=== PATIENT | female | born 1995 | race American Indian/Alaskan Native ===

== ENCOUNTER 2019-10-23 07:30 | Inpatient (IN) | payer OTHER ==
--- NOTE | 2019-11-03 17:01 | History and Physical Report ---
History of Present Illness Date of examination: 11/02/19 Date of admission: 11/02/2017 Chief complaint: here for c/s History of present illness: Pt presents for repeat c/s pre op. She does not desire btl at this time and is considering the IUD PP. All risk , benefits and alternatives were d/w pt and questions were addressed and answered. Consents were signed and given to pt to bring at time of surgery to the hospital. EDC Confirmation: 11/16/2019 Gestational Age: 19 2/7 weeks Past History : 2 Term Births: 1 Premature Births: 0 Living Children: 1 Para: 1 Mult. Births: 0 Prev : 1 Prev. attempt? 0 Aborta: 0 Elect. Ab: 0 Spont. Ab: 0 Ectopics: 0 # 1 Delivery date: 2017 Weeks Gestation: 40 labor: no Delivery type: Anesthesia type: epidural Delivery location: [facility] Infant Sex: Male weight: 9-3 Past Medical History: Negative Past Medical History Past Surgical History: C/S x 1 Family History Summary: MGF - Has Family History of Lung Cancer - Entered On: 06/24/2019 MGM - Has Family History of Hypertension - Entered On: 06/24/2019 Social History: Patient is single Smoking History: Patient has never smoked. 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 Infection History Hx of STD: none HIV Risk Eval: low risk Hepatitis B Risk Eval: low risk Personal hx. of genital herpes: no Partner hx. of genital herpes: no Rash, Viral, or Febrile illness since last LMP? no Varicella/Chicken Pox Status: Immunized TB Risk: no Active Medications (reviewed today): PLUS 27-1 MG ORAL TABLET ( VIT-FE FUMARATE-FA) 1 po Current Allergies (reviewed today): No known allergies Past History Past Medical History: other (see hpi) Past Surgical History: other (see hpi) BULK LOADER History: other (see hpi) Family/Genetic History: other (see hpi) - Obstetrical History Expected Date of Delivery: 11/16/19 Actual Gestation: 38 Week(s) 1 Day(s) : 2 Para: 1 Number of Living Children: 1 Review of Systems All systems: negative - Physical Exam Lungs: Positive: Normal air movement Abdomen: Positive: normal appearance, soft. Negative: distention, tenderness Genitourinary (Female): Positive: other (deferred) Extremities: Positive: normal. Negative: tenderness, edema - Obstetrical FHR: auscultation normal Results All other labs normal. Assessment and Plan - Patient Problems (1) Maternal care for low transverse scar from previous delivery Status: Acute Plan to address problem: -admit and prepare for repeat c/s -consents signed and to be placed on the chart
[2019-11-10] MEDS ORDERED: FAMOTIDINE 20 MG/2 ML INJ IV SCH (05:00)
[2019-11-10] MEDS ORDERED: OXYTOCIN 20 UNIT/1000ML DRIP 20 UNITS/1,000 ML BAG IV SCH ×2 (05:00→16:30)
[2019-11-10] MEDS ORDERED: METOCLOPRAMIDE 10 MG/2 ML INJ IV SCH (05:00)
[2019-11-10] MEDS ORDERED: ceFAZolin/Water 2 GM/20 ML 2 GM/20 ML SYRINGE IV NR (05:00)
[2019-11-10] MEDS ORDERED: BICITRA ORAL LIQD 30ML PO SCH (05:00)
[2019-11-10] MEDS ORDERED: LACTATED RINGERS 1,000 ML IV SCH (05:00)
[2019-11-10] MEDS ORDERED: LACTATED RINGERS 2,000 ML ONE (10:08)
[2019-11-10] MEDS ORDERED: BICITRA ORAL LIQD 30ML ONE (10:42)
[2019-11-10] MEDS ORDERED: METOCLOPRAMIDE 10 MG/2 ML INJ ONE (10:42)
[2019-11-10] MEDS ORDERED: ceFAZolin/Water 2 GM/20 ML 2 GM/20 ML SYRINGE IV ONE (10:43)
[2019-11-10] MEDS ORDERED: FAMOTIDINE 20 MG/2 ML INJ IV ONE (10:43)
[2019-11-10 10:56] LABS: Basophils # (Auto) 0.1 K/mm3 (0.0-0.1); Basophils % (Auto) 0.9 % (0.0-1.8); Eosinophils # (Auto) 0.1 K/mm3 (0.0-0.4); Eosinophils % (Auto) 0.9 % (0.0-4.3); Hematocrit 32.9 % (30.3-42.9); Hemoglobin 10.6 gm/dl (10.1-14.3); Lymphocytes # (Auto) 1.9 K/mm3 (1.2-5.4); Lymphocytes % (Auto) 28.8 % (13.4-35.0); Mean Corpuscular HGB Conc 32 % (30-34); Mean Corpuscular Volume 77 fl (79-97); Monocytes # (Auto) 0.7 K/mm3 (0.0-0.8); Monocytes % (Auto) 10.8 % (0.0-7.3); Platelet Count 202 K/mm3 (140-440); Red Blood Count 4.26 M/mm3 (3.65-5.03); Red Cell Distribution Width 15.7 % (13.2-15.2)
[2019-11-10] MEDS ORDERED: DEXMEDETOMIDINE 200 MCG/2 ML VIAL IV ONE (11:43)
[2019-11-10] MEDS ORDERED: SODIUM CHLORIDE 0.9% IRR 1,500 ML BOTTLE IR ONE (11:43)
[2019-11-10] MEDS ORDERED: WATER FOR IRRIG STERILE 1,500 ML BOTTLE IR ONE (11:43)
[2019-11-10] MEDS ORDERED: PHENYLEPHRINE/NS 1,000 MCG/10 ML SYRINGE (OR USE) IV ONE (11:44)
[2019-11-10] MEDS ORDERED: ePHEDrine SULFATE 50 MG/1 ML INJ ONE (11:46)
[2019-11-10] MEDS ORDERED: ONDANSETRON 4 MG/2 ML INJ ONE (12:22)
--- NOTE | 2019-11-10 12:43 | Anesthesia Consultation ---
Anesthesia Consult and Med Hx Date of service: 11/10/19 - Airway Anesthetic Teeth Evaluation: Poor ROM Head & Neck: Adequate Mental/Hyoid Distance: Adequate Mallampati Class: Class III Intubation Access Assessment: Probably Good - Pulmonary Exam CTA: Yes - Cardiac Exam Cardiac Exam: RRR - Pre-Operative Health Status ASA Pre-Surgery Classification: ASA2 Proposed Anesthetic Plan: Spinal - Pulmonary Hx Smoking: No Hx Asthma: No Hx Respiratory Symptoms: No SOB: No COPD: No Home Oxygen Therapy: No Hx Pneumonia: No Hx Sleep Apnea: No - Cardiovascular System Hx Hypertension: No Hx Coronary Artery Disease: No Hx Heart Attack/AMI: No Hx Angina: No Hx Percutaneous Transluminal Coronary Angioplasty (PTCA): No Hx Cardia Arrhythmia: No Hx Pacemaker: No Hx Internal Defibrillator: No Hx Valvular Heart Disease: No Hx Heart Murmur: No Hx Peripheral Vascular Disease: No - Central Nervous System Hx Neuromuscular Disorder: No Hx Seizures: No CVA: No Hx Back Pain: No Hx Psychiatric Problems: No - Gastrointestinal Hx Ulcer: No Hx Gastroesophageal Reflux Disease: Yes - Endocrine Hx Renal Disease: No Hx End Stage Renal Disease: No Hx Cirrhosis: No Hx Liver Disease: No Hx Insulin Dependent Diabetes: No Hx Non-Insulin Dependent Diabetes: No Hx Thyroid Disease: No Hx Hypothyroidism: No Hx Hyperthyroidism: No - Hematic Hx Anemia: No Hx Sickle Cell Disease: No - Other Systems Hx Alcohol Use: No Hx Substance Use: No Hx Cancer: No Hx Obesity: Yes - Additional Comments Anesthesia Medical History Comments: PSH: CSECTION
[2019-11-10] MEDS ORDERED: ONDANSETRON 4 MG/2 ML INJ IV PRN (12:44)
[2019-11-10] MEDS ORDERED: HYDROmorphone 1 MG/1 ML INJ IV PRN ×2 (12:44)
--- NOTE | 2019-11-10 12:44 | Anesthesia Day of Surgery ---
Anesthesia Day of Surgery - Day of Surgery Patient Examined: Yes Patient H&P Reviewed: Yes Patient is NPO: Yes Beta Blockers: No Cardiac Clearance: No Pulmonary Clearance: No Israel's Test: N/A
--- NOTE | 2019-11-10 12:44 | Post Anesthesia Evaluation ---
- Post Anesthesia Evaluation Patient Participated: Yes Airway Patent: Yes Stable Respiratory Function: Yes Nausea/Vomiting: No Temp > 96.8F: Yes Pain Manageable: Yes Adequeate Hydration: Yes Anesthesia Complications: No Block Receding Appropriately: Yes Patient on Ventilator: No
--- NOTE | 2019-11-10 12:58 | Operative Report ---
Operative Report Operative Report: Date of procedure: 11/11/2019 Pre-operative diagnosis: Intrauterine at 39 weeks with previous norma emmy section Post-operative diagnosis: Same plus meconium fluid Procedure name(s): Repeat low transverse section Surgeon: Danny Osorio MD Certified Credit Counselor: Anesthesia: Spinal EBL: 800 Complications: None Findings: Patient uterus had a very thin lower uterine segment with normal tubes and ovaries bilaterally. Male weight 8 lbs. 15 oz. Apgars 8 at 1 minute and 9 at 5 minutes Specimen(s): None Procedure: The patient was brought to the operating room. A spinal was placed without any complications. She was then placed in left lateral tilt. Prepped and draped in the usual sterile manner. After testing for adequate anesthesia level, a Pfannenstiel incision was made through her previous scar. This incision was taken down to the fascia. The fascia was then nicked in the midline. This incision was extended out laterally with Rashid scissors. The fascia was then sharply and bluntly from the underlying rectus muscles. The rectus muscles were bluntly and sharply . The peritoneum was then entered with the microfiche camera operator's fingers. This incision was spread vertically with care not to damage the bladder below. The bladder flap was then formed sharply and bluntly with Metzenbaum scissors. The David self-retaining tractor was then placed without any difficulty. A transverse incision was made in lower uterine segment. This incision was extended laterally with the operators fingers. The amniotic sac was then entered bluntly with the microfiche camera operator's fingers. The was delivered from the vertex position. Bulb suction on the mother's abdomen. Cord was double clamped and cut. The infant was then passed to the nursery personnel who were in attendance. The above scores were given by the nursery personnel. The placenta was then bluntly removed. The uterus was then externalized and wiped clean the remaining products. The uterine incision was closed in layers. The first incision was closed in a locking manner using 0 Vicryl. This was followed by imbricating stitch also with 0 Vicryl. This closure was hemostatic. The bladder flap was copiously irrigated and found to be hemostatic. The pelvis was copiously irrigated and found to be hemostatic. The uterus was then placed back to the patient's abdomen. The retractors were removed. The rectus muscles were inspected and found to be hemostatic. The fascia was then closed in a running manner using 0 Vicryl. This incision was hemostatic irrigation Bovie. The skin was reapproximated with 4-0 Vicryl subcuticularly. The patient tolerated procedure well. Her urine was clear. The infant was admitted to the well baby nursery. The patient was accompanied to recovery room in good condition. Instrument count correct 3.
[2019-11-10] MEDS ORDERED: D5W/LACTATED RINGERS 1,000 ML IV SCH (15:30)
[2019-11-10] MEDS ORDERED: WITCH HAZEL/ GLYCERIN PAD TP PRN (15:30)
[2019-11-10] MEDS ORDERED: SIMETHICONE 80 MG CHEW TAB PO PRN (15:30)
[2019-11-10] MEDS ORDERED: HYDROCORTISONE 25 MG RECTAL SUPP PR PRN (15:30)
[2019-11-10] MEDS ORDERED: LANOLIN/ZINC/DIMETHICONE (LANSINOH) 7 GM TP PRN (15:30)
[2019-11-10] MEDS ORDERED: NALOXONE 0.4 MG/1 ML INJ IV PRN (15:30)
[2019-11-10] MEDS ORDERED: MAGNESIUM HYDROXIDE (MOM) ORAL LIQD UDC PO PRN (15:30)
[2019-11-10] MEDS: KETOROLAC 30 MG/1 ML INJ IV SCH (15:47)
[2019-11-10] MEDS: ceFAZolin/NS 1 GM/50 ML 1 GM/50 ML BAG IV SCH (17:36)
[2019-11-10] MEDS: HYDROcodone/ACETAMINOPHEN 5-325 MG TAB PO PRN (22:29)
[2019-11-11 01:17] LABS: Hematocrit 29.6 % (30.3-42.9); Hemoglobin 9.7 gm/dl (10.1-14.3)
[2019-11-11] MEDS: HYDROcodone/ACETAMINOPHEN 5-325 MG TAB PO PRN ×2 (02:45→16:26)
[2019-11-11] MEDS: ceFAZolin/NS 1 GM/50 ML 1 GM/50 ML BAG IV SCH (02:46)
[2019-11-11] MEDS: IBUPROFEN 800 MG TAB PO PRN (04:50)
[2019-11-11] MEDS: PRENATAL VIT27-FE FUMARATE-FOLIC ACID VIT TAB PO SCH (10:20)
[2019-11-11] MEDS: KETOROLAC 30 MG/1 ML INJ IV SCH (10:20)
--- NOTE | 2019-11-11 10:55 | Progress Note ---
Assessment and Plan Continue post c/s pathway - Patient Problems (1) delivery delivered Current Visit: Yes Status: Acute (2) Anemia Current Visit: Yes Status: Acute Qualifiers: Other causes of anemia: acute posthemorrhagic (3) BMI 40.0-44.9, adult Current Visit: Yes Status: Acute Subjective - Subjective Date of service: 11/11/19 Principal diagnosis: POD#1 s/p RC/S Interval history: Resting in bed, no complaints, minimal bleeding Patient reports: pain well controlled, no flatus Objective - Vital Signs Latest vital signs: Vital Signs Temp Pulse Resp BP BP Pulse Ox 11/11/19 08:32 97.6 F 71 18 103/60 96 11/11/19 04:46 98.4 F 85 18 113/54 97 11/11/19 02:45 18 11/11/19 02:01 97.9 F 73 18 110/56 98 11/10/19 22:29 18 11/10/19 21:56 98.3 F 77 18 105/66 98 11/10/19 16:51 97.6 F 75 16 104/53 99 11/10/19 13:55 97.9 F 71 18 113/68 100 11/10/19 13:26 97.3 F L 85 22 130/69 100 11/10/19 13:15 88 18 137/77 100 11/10/19 13:00 86 20 125/66 100 11/10/19 12:45 102 H 21 125/67 100 11/10/19 12:40 110 H 20 131/74 100 11/10/19 12:35 97.2 F L 107 H 15 124/67 100 11/10/19 11:03 98.2 F Intake and Output 11/10/19 11/11/19 11/11/19 22:59 06:59 14:59 Intake Total 290 960 Output Total 650 1000 Balance -360 -40 Intake: IV 50 ANCEF/NS 1 GM/50 ML 1 gm 50 In 50 ml @ 100 mls/hr IV Q8H [facility] Rx#:[id number] Oral 240 Intake, Free Water 960 Output: Urine 650 1000 Indwelling Catheter 650 1000 Other: Total, Intake Amount 240 Total, Output Amount 650 1000 - Exam Breasts: Present: normal Cardiovascular: Present: Regular rate Lungs: Present: Clear to auscultation, Normal air movement Abdomen: Present: normal appearance, soft, normal bowel sounds. Absent: distention, guarding Uterus: Present: other (unable to palpate d/t bofy habitus) Extremities: Present: normal. Absent: tenderness Incision: Present: normal, dry, intact (no s/s infection or hematoma) - Labs Labs: Abnormal lab results 11/10/19 11/11/19 Range/Units 10:20 00:57 Hgb 9.7 L (10.1-14.3) gm/dl Hct 29.6 L (30.3-42.9) % MCV 77 L (79-97) fl MCH 25 L (28-32) pg RDW 15.7 H (13.2-15.2) % [place] % (Auto) 10.8 H (0.0-7.3) %
[2019-11-12] MEDS: IBUPROFEN 800 MG TAB PO PRN ×2 (00:47→10:40)
--- NOTE | 2019-11-12 09:06 | Discharge Summary ---
Providers - Providers Date of Admission: 11/10/19 09:44 Date of discharge: 11/12/19 (Pt desires to go home.) Attending physician: LEON RIOS 11/10/19 15:30 Consult to Hat Lining Paster [CONS] Routine Reason For Exam: Primary care physician: LEON RIOS Hospitalization Reason for admission: section, IUP at term Delivery: Procedure: section, repeat low transverse Episiotomy: none Laceration: none Incision: normal, dry, intact Other procedures: none complications: none Discharge diagnosis: IUP at term delivered baby: male Hospital course: Pt is 24 y.o. s/p rpt that desires to go home. She is doing well. Voiding, passing flatus, and ambulating without difficulty. VSS, H/H is 97./29.6. States that she wants an IUD for BC and will be getting circumcision. Fundus firm with minimal lochia rubra. Discharge home with instructions. To schedule an appointment in 1 week for incision check, and an appointment in 4 weeks for visit. Condition at discharge: Good Disposition: DC-01 TO HOME OR SELFCARE Plan - Provider Discharge Summary Activity: routine, no sex for 6 weeks, no heavy lifting 4 weeks, no strenuous exercise Diet: routine Instructions: routine Additional instructions: [] Smoking cessation referral if applicable(refer to patient education folder for contact #) [] Refer to [facility]'s [facility] Booklet Call your doctor immediately for: * Fever > 100.5 * Heavy vaginal bleeding ( >1 pad per hour) * Severe persistent headache * Shortness of breath * Reddened, hot, painful area to leg or breast * Drainage or odor from incision. * Keep incision clean and dry at all times and follow doctor's instructions regarding bathing/showering - Follow up plan Follow up: LEON RIOS MD [Primary Care Provider] - 7 Days (Congratulations!!! Please schedule an appointment in office in 1 week for incision check. Please schedule an appointment in office in 4 weeks for visit. Please schedule an appointment for your infant in 1 week for circumcision. You have been prescribed EMLA cream for your 's circumcision. Please do not use the cream at home, but bring the cream to the office for your circumcision appointment. Please call office if you have any questions or concerns. [address] [facility] [address] [facility], [id number])
[2019-11-12] MEDS: PRENATAL VIT27-FE FUMARATE-FOLIC ACID VIT TAB PO SCH (10:40)
[2019-11-12 14:09] VITALS: BP 115/62
== END 2019-11-12 14:00 | disposition home or self-care (01) | DRG 765 ==
LOC: APU 11-10 09:44 → OB 11-10 15:28
PROVIDERS: ADMIT Obstetrics & Gynecology; ATTEND Obstetrics & Gynecology
PROC: 10D00Z1 Extraction of Products of Conception, Low, Open Approach (ICD-10-PCS; principal; 2019-11-11)
DX: O34.211 Maternal care for low transverse scar from previous cesarean delivery (principal); D62 Acute posthemorrhagic anemia; Z37.0 Single live birth; Z3A.38 38 weeks gestation of pregnancy; O90.81 Anemia of the puerperium; O77.0 Labor and delivery complicated by meconium in amniotic fluid; O99.62 Diseases of the digestive system complicating childbirth; O99.214 Obesity complicating childbirth; E66.9 Obesity, unspecified; K21.9 Gastro-esophageal reflux disease without esophagitis
CPT/HCPCS: 36415; 85014; 85018; 85025; 86850; 86900; 86901; G0378; C1765; J0690; J1885; J2370; J2405; J2590; J2765; J3490; J7120; J7121